=== PATIENT | female | born 1970 | race Caucasian/White ===

== ENCOUNTER → 2016-09-26 | Outpatient (REF) | payer BC ==
[~2016-09-26] MED LIST: ACETAM OR; CYTO25TA PO; KEFL500C7 PO; ROCA0.5C PO; TIZA4CAP3 PO; TRAMADOL OR; TUMS500C PO; ZANA4CAP PO
[2016-09-26 12:49] LABS: FREE T4 1.34 NG/DL (0.76-1.46)
== END ==
LOC: M LABDRAW1 11:47
PROVIDERS: ATTEND Internal Medicine Endocrinology, Diabetes & Metabolism
DX: C73 Malignant neoplasm of thyroid gland (principal)

== ENCOUNTER → 2016-09-29 | Outpatient (CLI) | payer BC ==
--- NOTE | 2016-09-30 00:05 | ECWPNPC ---
PATIENT NAME: NATALIE QUINTERO : 1970 GENDER: FEMALE VISIT DATE: 09/29/2016 DISCHARGE DATE: 09/29/16937 VISIT LOCKED DATE TIME: PHYSICIAN: AMY WELLS RESOURCE: AMY WELLS REASON FOR APPOINTMENT 1. BACK, FIBR HISTORY OF PRESENT ILLNESS HISTORY OF PRESENT ILLNESS: PAIN THE PATIENT DESCRIBES THE PAIN... THE PATIENT DESCRIBES THE PAIN... HERE FOR F/U OF CHRONIC GENERALIZED PAIN AND LOW BACK PAIN.TRIALED ON GABAPENTIN RECENTLY BY PRIMARY CARE AND HAD SIDE EFFECT OF HEADACHE AND NO IMPROVEMENT IN PAIN.CURRENTLY USING IBUPROFEN 800MG AND TENS UNIT WHICH SHE FINDS HELPFUL.FEELS LOW BACK PAIN IS BETTER THAN AFTER INITIAL VISIT AT [facility] .DISCUSSED TREATMENT OPTIONS.DISCUSSED INTERVENTIONAL OPTIONS WE OFFER.SHE WOULD LIKE TO CONTINUE WITH CONSERVATIVE CARE.ASKING US TO PRESCRIBE LIDOCAINE PATCH THIS HAS BEEN HELPFUL.RATING PAIN VAS 4/10.CHIEF AREA OF PAIN IS LEFT LOW BACK AND LEFT NECK.WILL BE ATTENDING ACCUPUNCTURE WHICH SHE HAS BEEN ATTENDING FOR SEVERAL YEARS. FALL RISK SCREENING: SCREENING :NO FALLS IN THE PAST YEAR CURRENT MEDICATIONS TAKING SYNTHROID 112 MCG TABLET 2 TABLET ON AN EMPTY STOMACH IN THE MORNING ORALLY ONCE A DAY TAKING CALCIUM 600 MG TABLET 1 TABLET WITH MEALS ORALLY ONCE A DAY TAKING TIZANIDINE HCL 4 MG TABLET 1 TABLET NEEDED ORALLY AT BEDTIME NEEDED TAKING IBUPROFEN 800 MG TABLET 1 TABLET ORALLY THREE TIMES A DAY TAKING LIDOCAINE HCL 4 % CREAM 4GM EXTERNALLY Q8H PRN LOW BACK TAKING CYMBALTA 30 MG CAPSULE DELAYED RELEASE PARTICLES 1 CAPSULE ORALLY ONCE A DAY TAKING FLUTICASONE PROPIONATE 50 MCG/ACT SUSPENSION 1 SPRAY IN EACH NOSTRIL NASALLY ONCE A DAY TAKING BREO ELLIPTA 200-25 MCG/INH AEROSOL POWDER BREATH ACTIVATED 1 PUFF INHALATION ONCE A DAY TAKING TAMIFLU 75 MG CAPSULE 1 CAPSULE ORALLY DAILY TAKING PENICILLIN V POTASSIUM 250 MG TABLET 1 TABLET ORALLY FOUR TIMES DAILY TAKING DIFLUCAN 150 MG TABLET 1 TABLET ORALLY 1 TODAY AND REPEAT X 1 IN A MONTH NOT-TAKING VITAMIN D 2000 UNIT TABLET DIRECTED ORALLY MEDICATION LIST REVIEWED AND RECONCILED WITH THE PATIENT PAST MEDICAL HISTORY FIBROMYALGIA- DX RHEUM UTICA- 2003 GESTATIONAL DIABETES INSOMNIA 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 CITLALI NESBITT, DECEMBER 2013 ALLERGIES CODEINE PHOSPHATE (FOR ALLERGIES USE ONLY): HYPERACTIVITY: SIDE EFFECTS SOCIAL HISTORY GENERAL: TOBACCO USE ARE YOU A:NONSMOKER LEARNING BARRIERS / SPECIAL NEEDS ORIENTED TO PLAN OF CARE: PATIENT, PAIN MANAGEMENT PATIENT, ORIENTED TO PLAN OF CARE: PATIENT, PAIN MANAGEMENT PATIENT. NEW PATIENT PAIN DIARY TODAY'S VISITNOTES FROM 0-10, WHAT LEVEL IS YOUR PAIN TODAY?0 PAIN CLINIC PFS, CLERGY, PUBLIC HEALTH REFERRALS PFS REFERRAL NEEDED?NO CLERGY REFERRAL NEEDED?NO PUBLIC HEALTH REFERRAL NEEDED?NO WAS THE PROVIDER NOTIFIED OF ANY PERTINENT INFO?NO PFS REFERRAL NEEDED?NO CLERGY REFERRAL NEEDED?NO PUBLIC HEALTH REFERRAL NEEDED?NO WAS THE PROVIDER NOTIFIED OF ANY PERTINENT INFO?NO REVIEW OF SYSTEMS CONSTITUTIONAL: ANY CHANGE IN YOUR MEDICAL CONDITION? NO . CHILLS NO . FEVER NO . INFECTION: DO YOU HAVE NEW INFECTIONS? NO . DO YOU HAVE HISTORY OF MRSA? NO . MUSCULOSKELETAL: ANY NEW PATTERNS OF PAIN OR NUMBNESS? YES INCREASED PAIN LOWER BACK . GASTROENTEROLOGY: ANY NEW CHANGE IN BOWEL CONTROL? NO . GENITOURINARY: ANY NEW CHANGE IN BLADDER CONTROL? NO . IS THERE A CHANCE YOU COULD BE ? NO . HEMATOLOGY/LYMPH: DO YOU TAKE ANY BLOOD THINNERS? (FOR EXAMPLE- COUMADIN, PLAVIX, AGGRENOX, PLATEL, PRADAXA, OR XARELTO) NO . WHEN WAS YOUR LAST DOSE? DATE: TIME: . NEUROLOGY: HAVE YOU FALLEN IN THE PAST 6 MONTHS? YES . ANY NEW EXTREMITY NUMBNESS OR WEAKNESS? NO . CARDIOLOGY: DO YOU HAVE A PACEMAKER OR DEFIBRILLATOR? NO . RESPIRATORY: HAVE YOU BEEN SICK IN THE PAST WEEK? NO . FEVER NO . FLU LIKE SYMPTOMS? NO . COUGH NO . INTEGUMENTARY: DO YOU HAVE ANY RASHES OR OPEN SORES? NO . ALLERGIC/IMMUNO: ARE YOU ALLERGIC TO SHELLFISH OR IV DYE? NO . ANY NEW ALLERGIES? NO . PSYCHIATRIC: DO YOU HAVE THOUGHTS OF HURTING YOURSELF OR SOMEONE ELSE? NO . ARE YOU ABUSED, NEGLECTED, OR IN AN UNSAFE ENVIRONMENT? NO . ENDOCRINOLOGY: ARE YOU DIABETIC? NO . OTHER: DO YOU NEED ANY PRESCRIPTIONS? NO . IF YES, PLEASE LIST: ____ . ANY NEW PROBLEMS WITH YOUR MEDICATIONS? NO . WHEN DID YOU LAST EAT? ____ . WHEN DID YOU LAST DRINK? ____ . WHAT DID YOU LAST DRINK? ____ . NAME OF PERSON DRIVING YOU HOME? ____ . DO YOU HAVE ANY OTHER QUESTIONS OR CONCERNS NO . REVIEWED BY: PROVIDER: AMY SARABIA . VITAL SIGNS WT 288.6 LBS, HT 68 IN, BMI 43.88 INDEX, BP 131/87 MM HG, HR 73 /MIN, RR 18 /MIN, TEMP 96.9 F, OXYGEN SAT % 95%, NA INITIALS SC 09:07. EXAMINATION GENERAL EXAMINATION: LUNGS:LUNG SOUNDS ARE CLEAR. HEART:HEART RATE REGULAR. MUSCULOSKELETAL:*, MUSCLE STRENGTH TESTING 5/5 BILATERAL, PALPATION: POSITIVE FOR PAIN OVER L/S SPINE. POSITIVE FOR PAIN OVER L/S PARSPINALS.MULTIPLE AREAS OF TENDER SPOTS UPPER AND LOWER TORSO BILAT. INDICATIVEOF FIBROMYALGIA. ASSESSMENTS PROTRUDED LUMBAR DISC - M51.26 (PRIMARY) FIBROMYALGIA - M79.7 TREATMENT PROTRUDED LUMBAR DISC INCREASE CYMBALTA CAPSULE DELAYED RELEASE PARTICLES, 60 MG, 1 CAPSULE, ORALLY, ONCE A DAY, 30 DAY(S), 30 CAPSULE, REFILLS 2 PROCEDURE CODES FA211 ESTABILISHED PATIENT [facility] CHARGE DISPOSITION & COMMUNICATION FOLLOW UP 2 MONTHS ELECTRONICALLY SIGNED BY NO MESSER ON 09/29/2016 AT 10:06 AM EST DISCLAIMER : THIS IS A VISIT SUMMARY EXTRACTED FROM THE [email or web address] CHART. IT IS NOT A COPY OF THE [email or web address] PROGRESS NOTE. MTDD
== END | disposition home or self-care (01) ==
LOC: M PAIN 09:00
PROVIDERS: ATTEND Nurse Practitioner Family
DX: Z09 Encounter for follow-up examination after completed treatment for conditions other than malignant neoplasm (principal); G89.29 Other chronic pain; M51.26 Other intervertebral disc displacement, lumbar region; M79.7 Fibromyalgia; G47.00 Insomnia, unspecified; E89.0 Postprocedural hypothyroidism; Z79.899 Other long term (current) drug therapy; Z79.51 Long term (current) use of inhaled steroids; Z79.2 Long term (current) use of antibiotics; Z79.1 Long term (current) use of non-steroidal anti-inflammatories (NSAID); Z88.5 Allergy status to narcotic agent

== ENCOUNTER → 2016-10-09 | Outpatient (CLI) | payer BC ==
--- NOTE | 2016-10-09 13:34 | REP ---
LEFT AXILLARY ULTRASOUND: Left axillary ultrasound performed in this patient with a palpable abnormality in the left axillary region, with pain. Two somewhat hyperechoic nodular structures are seen in the left axillary region. They measure 1.1 x 0.9 x 1.6 cm and 1.4 x 1.0 x 1.0 cm. These could represent lymph nodes or lipomas. Further evaluation may be made with CT scan. Signed by Bobby Hopkins MD 10/09/2016 04:14 P
== END ==
LOC: M RAD 12:39
PROVIDERS: ATTEND Nurse Practitioner Adult Health
DX: R59.9 Enlarged lymph nodes, unspecified (principal)

== ENCOUNTER → 2016-12-14 | Outpatient (CLI) | payer BC ==
--- NOTE | 2017-01-06 00:40 | ECWPNPC ---
PATIENT NAME: NATALIE QUINTERO : 1970 GENDER: FEMALE VISIT DATE: 12/14/2016 DISCHARGE DATE: 12/14/16 1433 VISIT LOCKED DATE TIME: PHYSICIAN: AMY WELLS RESOURCE: AMY WELLS REASON FOR APPOINTMENT 1. BACK HISTORY OF PRESENT ILLNESS HISTORY OF PRESENT ILLNESS: HERE FOR F/U AND MANAGEMENT OF CHRONIC LOW BACK PAIN AND PERSISTENT LEFT NECK PAIN.THIS BEGAN AFTER FALL INJURY ONE YEAR AGO.TRIALED MULTIPLE DIFFERENT MEDICATIONS BUT HAS SIDE EFFFECTS.RECENT DOSE INCREASE IN CYMBALTA WITH SIDE EFFECTS.RATING PAIN VAS 6/10.DISCUSSED TRETMENT OPTIONS.PATIENT IS RELUCTANT TO TRY INJECTION THERAPY.INTERESTED IN MEDICAL MARIJUANA AND SHE WAS GIVEN INFORMATION ON THIS TODAY. PAIN THE PATIENT DESCRIBES THE PAIN... FALL RISK SCREENING: SCREENING :NO FALLS IN THE PAST YEAR CURRENT MEDICATIONS TAKING SYNTHROID 112 MCG TABLET 2 TABLET ON AN EMPTY STOMACH IN THE MORNING ORALLY ONCE A DAY TAKING CALCIUM 600 MG TABLET 1 TABLET WITH MEALS ORALLY ONCE A DAY TAKING IBUPROFEN 800 MG TABLET 1 TABLET ORALLY THREE TIMES A DAY TAKING LIDOCAINE HCL 4 % CREAM 4GM EXTERNALLY Q8H PRN LOW BACK TAKING CYMBALTA 30 MG CAPSULE DELAYED RELEASE PARTICLES 1 CAPSULE ORALLY ONCE A DAY TAKING TIZANIDINE HCL 4 MG TABLET 1 TABLET NEEDED ORALLY AT BEDTIME NEEDED NOT-TAKING FLUTICASONE PROPIONATE 50 MCG/ACT SUSPENSION 1 SPRAY IN EACH NOSTRIL NASALLY ONCE A DAY NOT-TAKING BREO ELLIPTA 200-25 MCG/INH AEROSOL POWDER BREATH ACTIVATED 1 PUFF INHALATION ONCE A DAY NOT-TAKING TAMIFLU 75 MG CAPSULE 1 CAPSULE ORALLY DAILY NOT-TAKING PENICILLIN V POTASSIUM 250 MG TABLET 1 TABLET ORALLY FOUR TIMES DAILY NOT-TAKING DIFLUCAN 150 MG TABLET 1 TABLET ORALLY 1 TODAY AND REPEAT X 1 IN A MONTH NOT-TAKING VITAMIN D 2000 UNIT TABLET DIRECTED ORALLY MEDICATION LIST REVIEWED AND RECONCILED WITH THE PATIENT PAST MEDICAL HISTORY FIBROMYALGIA- DX RHEUM UTICA- 2003 GESTATIONAL DIABETES INSOMNIA VIT D DEF- 33.1 12/03 THYROID NODULE S/P FNA 11/03 13, DR. 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 CITLALI NESBITT, DECEMBER 2013 ALLERGIES CODEINE PHOSPHATE (FOR ALLERGIES USE ONLY): HYPERACTIVITY: SIDE EFFECTS SURGICAL HISTORY TUBAL LIGATION 2009 TOTAL THYROIDECTOMY-TOTAL THYROIDECTOMY WITH 15 NOSE REMOVED,DR. ENG, DR. LIZARRAGA 12/18/13 TONSILECTOMY 2009 GALL BLADDER 2009 UMBILICAL HERNIA REPAIR 2009 HOSPITALIZATION/MAJOR DIAGNOSTIC PROCEDURE FOR ABOVE REASONS REVIEW OF SYSTEMS CONSTITUTIONAL: ANY CHANGE IN YOUR MEDICAL CONDITION? YES. PT STATES SHE HAD SINUSITIS FOR 6 MONTHS OVER WINTER, PT STATES SHE WAS ON SEVERAL ABX TX. PT REPORTS L SUBAXILLARY LYMPHADENOPATHY, PCP Miguel SYLVESTER AWARE. PT STATES IT IS GETTING BETTER. . CHILLS NO . FEVER NO . INFECTION: DO YOU HAVE NEW INFECTIONS? YES, SINUSITIS RESOLVED . DO YOU HAVE HISTORY OF MRSA? NO . MUSCULOSKELETAL: ANY NEW PATTERNS OF PAIN OR NUMBNESS? NO . GASTROENTEROLOGY: ANY NEW CHANGE IN BOWEL CONTROL? NO . GENITOURINARY: ANY NEW CHANGE IN BLADDER CONTROL? NO . IS THERE A CHANCE YOU COULD BE ? NO . HEMATOLOGY/LYMPH: DO YOU TAKE ANY BLOOD THINNERS? (FOR EXAMPLE- COUMADIN, PLAVIX, AGGRENOX, PLATEL, PRADAXA, OR XARELTO) NO . WHEN WAS YOUR LAST DOSE? DATE: TIME: . NEUROLOGY: HAVE YOU FALLEN IN THE PAST 6 MONTHS? NO . ANY NEW EXTREMITY NUMBNESS OR WEAKNESS? NO . CARDIOLOGY: DO YOU HAVE A PACEMAKER OR DEFIBRILLATOR? NO . RESPIRATORY: HAVE YOU BEEN SICK IN THE PAST WEEK? NO . FEVER NO . FLU LIKE SYMPTOMS? NO . COUGH NO . INTEGUMENTARY: DO YOU HAVE ANY RASHES OR OPEN SORES? NO . ALLERGIC/IMMUNO: ARE YOU ALLERGIC TO SHELLFISH OR IV DYE? NO . ANY NEW ALLERGIES? NO . PSYCHIATRIC: DO YOU HAVE THOUGHTS OF HURTING YOURSELF OR SOMEONE ELSE? NO . ARE YOU ABUSED, NEGLECTED, OR IN AN UNSAFE ENVIRONMENT? NO . ENDOCRINOLOGY: ARE YOU DIABETIC? NO . OTHER: DO YOU NEED ANY PRESCRIPTIONS? YES, IBUPROFEN . IF YES, PLEASE LIST: ____ . ANY NEW PROBLEMS WITH YOUR MEDICATIONS? NO . WHEN DID YOU LAST EAT? ____ . WHEN DID YOU LAST DRINK? ____ . WHAT DID YOU LAST DRINK? ____ . NAME OF PERSON DRIVING YOU HOME? ____ . DO YOU HAVE ANY OTHER QUESTIONS OR CONCERNS NO . REVIEWED BY: PROVIDER: AMY SARABIA . VITAL SIGNS WT 288 LBS, HT 68 IN, BMI 43.79 INDEX, BP 130/87 MM HG, HR 90 /MIN, RR 18 /MIN, TEMP 96.9 F, OXYGEN SAT % 98, SAFE IN ENV? (Y/N) Y, REVIEWED BY: EM. EXAMINATION GENERAL EXAMINATION: LUNGS:LUNG SOUNDS ARE CLEAR. HEART:HEART RATE REGULAR. MUSCULOSKELETAL:*, MUSCLE STRENGTH TESTING 5/5 BILATERAL, PALPATION: POSITIVE FOR PAIN OVER L/S SPINE. POSITIVE FOR PAIN OVER L/S PARSPINALS.MULTIPLE AREAS OF TENDER SPOTS UPPER AND LOWER TORSO BILAT. INDICATIVEOF FIBROMYALGIA. ASSESSMENTS PROTRUDED LUMBAR DISC - M51.26 (PRIMARY) MYALGIA - M79.1 TREATMENT PROTRUDED LUMBAR DISC REFILL IBUPROFEN TABLET, 800 MG, 1 TABLET, ORALLY, THREE TIMES A DAY, 30 DAY(S), 90 TABLET, REFILLS 2 CONTINUE CYMBALTA CAPSULE DELAYED RELEASE PARTICLES, 30 MG, 1 CAPSULE, ORALLY, ONCE A DAY CONTINUE TIZANIDINE HCL TABLET, 4 MG, 1 TABLET NEEDED, ORALLY, AT BEDTIME NEEDED PROCEDURE CODES FA211 ESTABILISHED PATIENT [facility] CHARGE DISPOSITION & COMMUNICATION FOLLOW UP PT WILL CALL ELECTRONICALLY SIGNED BY NO MESSER ON 01/05/2017 AT 08:27 PM EDT DISCLAIMER : THIS IS A VISIT SUMMARY EXTRACTED FROM THE [employer] CHART. IT IS NOT A COPY OF THE [employer] PROGRESS NOTE. WENDIE
== END ==
LOC: M PAIN 13:40
PROVIDERS: ATTEND Nurse Practitioner Family
DX: M51.26 Other intervertebral disc displacement, lumbar region (principal); M79.1 Myalgia; Z79.899 Other long term (current) drug therapy; Z88.5 Allergy status to narcotic agent

== ENCOUNTER → 2017-05-03 | Outpatient (REF) | payer BC ==
[~2017-05-03] MED LIST changes: +CBD PO; -CYTO25TA PO; +CYTO25TA6 PO; +KEFL500C17 PO; -KEFL500C7 PO; +SYNT100T PO; +SYNT112T2 PO; +VITA100067 PO; +[UNRECOGNIZED DRUG - OTHER] PO
[2017-05-03 18:15] LABS: FREE T4 1.2 NG/DL (0.76-1.46)
== END ==
LOC: M LABDRAWP 17:08
PROVIDERS: ATTEND Internal Medicine
DX: C73 Malignant neoplasm of thyroid gland (principal)

== ENCOUNTER → 2017-05-03 | Outpatient (REF) | payer BC ==
[2017-05-03 18:07] LABS: BASO # 0.1 10^3/uL (0.0-0.2); BASO % 0.5 % (0.0-1.0); EOS # 0.2 10^3/uL (0.0-0.50); EOS % 1.5 % (0.0-3.0); IMMATURE GRANULOCYTE % 0.7 % (0-0); LYMPH # 1.9 10^3/uL (1.5-4.5); LYMPH % 17.3 % (24.0-44.0); MEAN CORPUSCULAR HEMOGLOBIN 28.9 pg (27.0-33.0); MEAN CORPUSCULAR HGB CONC 33.6 g/dl (32.0-36.5); MEAN CORPUSCULAR VOLUME 86.2 fl (80.0-96.0); MONO # 0.9 10^3/uL (0.0-0.8); MONO % 7.7 % (0.0-5.0); NEUTROPHILS % 72.3 % (36.0-66.0); PLATELET COUNT, AUTOMATED 287 10^3/uL (150-450); RED CELL DISTRIBUTION WIDTH 13.2 % (11.5-14.5)
[2017-05-03 18:14] LABS: ANION GAP 9 MEQ/L (8-16); BLOOD UREA NITROGEN 17 MG/DL (7-18); CALCIUM LEVEL 8.7 MG/DL (8.5-10.1); CARBON DIOXIDE LEVEL 25 MEQ/L (21-32); CHLORIDE LEVEL 105 MEQ/L (98-107); CREATININE FOR GFR 1.01 MG/DL (0.55-1.02); GLOMERULAR FILTRATION RATE > 60.0 (>58); GLUCOSE, FASTING 111 MG/DL (70-105); SODIUM LEVEL 139 MEQ/L (136-145)
== END ==
LOC: M LAB REF 17:06 → M LABDRAWP 17:06
PROVIDERS: ATTEND Podiatrist
DX: M77.32 Calcaneal spur, left foot (principal); Z01.818 Encounter for other preprocedural examination

== ENCOUNTER 2017-05-10 07:23 | Day surgery (SDC) | payer BC ==
[~2017-05-10] VITALS: Ht 175.3 cm; Wt 134.6 kg
[2017-05-10] MEDS ORDERED: LR 1,000 ML IV SCH ×3 (07:30→12:15)
[2017-05-10] MEDS ORDERED: ONDANSETRON 4MG/2ML VIAL (J2405) As Ordered ONE (08:01)
[2017-05-10] MEDS ORDERED: fentaNYL 100 MCG/2 ML INJECTION (J3010) As Ordered ONE (08:01)
[2017-05-10] MEDS ORDERED: MIDAZOLAM INJ 2 MG/2 ML VIAL (J2250) As Ordered ONE (08:01)
[2017-05-10] MEDS ORDERED: PROPOFOL 200 MG/20 ML VIAL As Ordered ONE ×2 (08:01→09:43)
[2017-05-10] MEDS ORDERED: KETOROLAC 60 MG/2 ML VIAL (J1885) As Ordered ONE (08:01)
[2017-05-10] MEDS ORDERED: LIDOCAINE 2% INJ 100 MG/5 ML SDV (FOR ANES.) As Ordered ONE (08:01)
[2017-05-10] MEDS ORDERED: LIDOCAINE 2% MDV 20 ML VIAL As Ordered ONE (08:29)
[2017-05-10] MEDS ORDERED: BACITRACIN PWD 50,000 UNITS VIAL As Ordered ONE (08:29)
[2017-05-10] MEDS ORDERED: BUPIVACAINE HCL 0.5% 30 ML VIAL As Ordered ONE (08:29)
[2017-05-10] MEDS ORDERED: NEOSPORIN GU IRRIG 20 ML VIAL As Ordered ONE (08:29)
[2017-05-10] MEDS ORDERED: dexameTHASONE 4 MG/ML 1ML VIAL (J1100) As Ordered ONE (08:29)
[2017-05-10] MEDS ORDERED: ONDANSETRON 4MG/2ML VIAL (J2405) IV PRN ×2 (10:00→12:15)
[2017-05-10] MEDS ORDERED: PERCOCET 5MG/325MG TAB PO PRN ×2 (10:00→12:15)
--- NOTE | 2017-05-10 10:40 | REP ---
LEFT FOOT, THREE VIEWS: HISTORY: Postoperative. There is no acute fracture or dislocation. The joint spaces are normal in appearance. There are no bone spurs. IMPRESSION: There is no acute fracture or dislocation. Signed by Francisco Colunga MD 05/10/2017 11:00 A
--- NOTE | 2017-05-10 10:48 | RO ---
DATE OF PROCEDURE: 05/10/2017 PREPROCEDURE DIAGNOSIS: Navicular spur dorsal aspect left foot. POSTPROCEDURE DIAGNOSIS: Navicular spur dorsal aspect left foot. PROCEDURE: Excision of navicular spur of the left foot. SURGEON: Dr. Mateo Valverde DPM SOFTWARE SALES EXECUTIVE: None. ANESTHESIA: General. IRRIGATION: Dilute bacitracin, neomycin and polymyxin B solution. HEMOSTASIS: Thigh pneumatic tourniquet at 250 mmHg left thigh on the left thigh for 25 minutes. HARDWARE USED: Bone wax. DRAINS UTILIZED: None. DESCRIPTION OF OPERATION: On 05/10/2017, this 46-year-old white female was taken from her hospital room to the operating room and placed on the operating room table in the supine position. Following the induction of IV sedation and local and regional anesthesia, the left lower extremity was prepped and draped in the usual aseptic manner. Thigh pneumatic tourniquet was rapidly inflated. Sterile draping was completed and the following procedure was performed: EXCISION OF NAVICULAR SPUR LEFT FOOT: Attention was directed to the patient's dorsal surface of the left foot where a 3 cm incision was placed over the spur along the medial border of the extensor hallicus longus tendon just lateral to the neurovascular bundle. The incision was then deepened through the subcutaneous tissues and the inferior extensor retinaculum was incised. The extensor tendons were retracted in a lateral direction. Dissection was carried down to the level of the extensor digitorum muscle belly which was also reflected in a lateral direction. Periosteal incision was made directly over the spur and utilizing a subperiosteal dissection to protect the neurovascular bundle, the exposure was obtained revealing the spur off the navicula. Utilizing a rongeur, the spur was removed. Intraoperative C-arm imagery revealed resection of the spur. The wound was flushed with copious amounts of dilute bacitracin, neomycin and polymyxin B solution. Bone wax was then placed overlying the cancellous bone. Wound was then irrigated with dilute bacitracin, neomycin and polymyxin B solution. Inferior extensor retinaculum was then repaired with #4-0 Monocryl in a simple interrupted type fashion. Subcutaneous tissues were coapted and maintained utilizing #4-0 Monocryl in a simple interrupted type fashion. Skin incision coapted and maintained using #5-0 Monocryl in a continuous subcuticular type fashion. This was additionally reinforced with Steri-Strips. Following the completion of the surgical procedure, 1 mL of Dexamethasone sodium phosphate was instilled along the surgical site. Attention was directed toward bandaging where a sterile compression bandage was applied consisting of Adaptic, 4x4, 4x4 splint, Vaughn, and Coban. The thigh pneumatic tourniquet was then rapidly deflated and instantaneous capillary filling time was noted to digits of one through five of the patient's left foot. The patient having apparently tolerated the surgical procedure well was taken from the operating room (OR) to the recovery room with vital signs stable and the patient afebrile for further monitoring by the anesthesia department. All surgical specimens removed during the operative procedure were sent for pathology for gross and microscopic examination. Postoperative instructions will be given upon discharge.
[2017-05-10 11:30] VITALS: BP 126/65
[2017-05-10] MEDS ORDERED: PERCOCET 5MG/325MG TAB As Ordered ONE (11:33)
== END 2017-05-10 12:05 | disposition home or self-care (01) ==
LOC: M SDC 07:23
PROVIDERS: ATTEND Podiatrist
DX: M25.775 Osteophyte, left foot (principal); M79.7 Fibromyalgia; E55.9 Vitamin D deficiency, unspecified; C73 Malignant neoplasm of thyroid gland; M51.9 Unspecified thoracic, thoracolumbar and lumbosacral intervertebral disc disorder; R51 Headache; Z79.899 Other long term (current) drug therapy; Z88.5 Allergy status to narcotic agent; Z98.51 Tubal ligation status; Z92.3 Personal history of irradiation; Z87.891 Personal history of nicotine dependence
CPT/HCPCS: 28119; 73630; 88300; 97116; J0690; J1100; J1885; J2250; J2405; J3010

== ENCOUNTER → 2017-07-18 | Outpatient (REF) | payer BC | LOC: M LAB REF 19:23 | DX: N39.0 Urinary tract infection, site not specified (principal) | CPT/HCPCS: 87186 ==

== ENCOUNTER → 2018-02-04 | Outpatient (REF) | payer BC ==
[2018-02-04 13:06] LABS: FREE T4 1.56 NG/DL (0.76-1.46); THYROID STIMULATING HORMONE 0.052 uIU/ML (0.358-3.740)
== END ==
LOC: M LABDRWAD 12:08
DX: E03.9 Hypothyroidism, unspecified (principal)
CPT/HCPCS: 84443

== ENCOUNTER → 2018-06-10 | Outpatient (REF) | payer BC ==
[2018-06-10 20:12] LABS: CREATININE FOR GFR 1.02 MG/DL (0.55-1.30); ESTIMATED AVERAGE GLUCOSE 114 MG/DL (60-110); FREE T4 1.46 NG/DL (0.76-1.46); GLOMERULAR FILTRATION RATE > 60.0 (>58); HEMOGLOBIN A1c 5.6 %; THYROID STIMULATING HORMONE 0.058 uIU/ML (0.358-3.740)
== END ==
LOC: M LABDRWAD 19:31
DX: R73.03 Prediabetes (principal)

== ENCOUNTER → 2018-08-08 | Outpatient (CLI) | payer BC ==
[~2018-08-08] MED LIST changes: +TIZA4CAP PO; -TIZA4CAP3 PO
--- NOTE | 2018-08-09 05:41 | REP ---
Clinical: Abdominal hernia. Technique: Real time tovar scale and color evaluation using curved array transducer. Findings: Directed ultrasound examination at the site of maximal tenderness just to the right of midline demonstrates an ovoid echogenic well-circumscribed area measuring approximately 2.5 x 1.3 x 2.3 cm suggesting lipoma. No hernia or fluid collection identified. Impression: Suspected lipoma in the subcutaneous tissues underlying the area of maximal tenderness. Electronically Signed by Yogi Witt MD 08/09/2018 05:32 A
== END ==
LOC: M RAD 09:39
PROVIDERS: ATTEND Nurse Practitioner Adult Health
DX: K45.8 Other specified abdominal hernia without obstruction or gangrene (principal)

== ENCOUNTER → 2018-08-08 | Outpatient (REF) | payer BC ==
[2018-08-08 13:56] LABS: FREE T4 1.47 NG/DL (0.76-1.46); THYROID STIMULATING HORMONE 0.028 uIU/ML (0.358-3.740)
[2018-08-09 09:58] LABS: THYROGLOBULIN ANTIBODY 30.5 U/ML (<60.0)
== END ==
LOC: M LABDRAW1 13:28
PROVIDERS: ATTEND Internal Medicine Endocrinology, Diabetes & Metabolism
DX: C73 Malignant neoplasm of thyroid gland (principal)

== ENCOUNTER → 2018-08-29 | Outpatient (REF) | payer BC | LOC: M LAB REF 17:23 | PROVIDERS: ATTEND Surgery | DX: D17.1 Benign lipomatous neoplasm of skin and subcutaneous tissue of trunk (principal) ==

== ENCOUNTER → 2018-10-04 | Outpatient (REF) | payer BC ==
[2018-10-04 20:16] LABS: FREE T4 1.31 NG/DL (0.76-1.46); THYROID STIMULATING HORMONE 0.066 uIU/ML (0.358-3.740)
== END ==
LOC: M LABDRWAD 19:00 → M LAB REF 19:00
PROVIDERS: ATTEND Internal Medicine Endocrinology, Diabetes & Metabolism
DX: C73 Malignant neoplasm of thyroid gland (principal)

== ENCOUNTER → 2018-12-17 | Outpatient (REF) | payer BC ==
[2018-12-17 20:14] LABS: BASO # 0.1 10^3/uL (0.0-0.2); BASO % 0.5 % (0.0-1.0); EOS # 0.1 10^3/uL (0.0-0.50); EOS % 0.6 % (0.0-3.0); HEMATOCRIT 44.2 % (36.0-47.0); HEMOGLOBIN 14.4 g/dl (12.0-15.5); LYMPH % 20.3 % (24.0-44.0); MEAN CORPUSCULAR HEMOGLOBIN 29.3 pg (27.0-33.0); MEAN CORPUSCULAR HGB CONC 32.6 g/dl (32.0-36.5); MONO # 0.6 10^3/uL (0.0-0.8); MONO % 5.8 % (0.0-5.0); NEUTROPHILS # 7.3 10^3/uL (1.8-7.7); NEUTROPHILS % 72.1 % (36.0-66.0); PLATELET COUNT, AUTOMATED 296 10^3/uL (150-450); RED BLOOD COUNT 4.91 10^6/uL (4.00-5.40); WHITE BLOOD COUNT 10.1 10^3/uL (4.0-10.0)
[2018-12-17 20:23] LABS: ALBUMIN 3.9 GM/DL (3.2-5.2); ALT/SGPT 18 U/L (12-78); BILIRUBIN,TOTAL 0.4 MG/DL (0.2-1.0); BLOOD UREA NITROGEN 14 MG/DL (7-18); CALCIUM LEVEL 8.8 MG/DL (8.5-10.1); CARBON DIOXIDE LEVEL 27 MEQ/L (21-32); CHLORIDE LEVEL 106 MEQ/L (98-107); CHOLESTEROL LEVEL 137 MG/DL (<200); CHOLESTEROL RISK RATIO 3.044 (<5); CREATININE FOR GFR 0.89 MG/DL (0.55-1.30); GLOMERULAR FILTRATION RATE > 60.0 (>58); GLUCOSE, FASTING 93 MG/DL (70-100); HDL CHOLESTEROL 45 MG/DL (>40); LDL CHOLESTEROL 50 MG/DL (<100); NON-HDL-C 92 MG/DL; SODIUM LEVEL 139 MEQ/L (136-145); TOTAL PROTEIN 6.9 GM/DL (6.4-8.2); TRIGLYCERIDES LEVEL 211 MG/DL (<150)
[2018-12-17 20:59] LABS: HEMOGLOBIN A1c 5.5 %
[2018-12-24 14:11] LABS: STREP PNEUMO TYPE 1 <0.1 ug/mL (>1.3); STREP PNEUMO TYPE 12F 0.6 ug/mL (>1.3); STREP PNEUMO TYPE 14 <0.1 ug/mL (>1.3); STREP PNEUMO TYPE 18C >14.7 ug/mL (>1.3); STREP PNEUMO TYPE 19A 1.4 ug/mL (>1.3); STREP PNEUMO TYPE 19F 1.4 ug/mL (>1.3); STREP PNEUMO TYPE 23F 0.5 ug/mL (>1.3); STREP PNEUMO TYPE 3 0.7 ug/mL (>1.3); STREP PNEUMO TYPE 4 0.4 ug/mL (>1.3); STREP PNEUMO TYPE 6B 0.3 ug/mL (>1.3); STREP PNEUMO TYPE 7F 0.6 ug/mL (>1.3); STREP PNEUMO TYPE 8 1.1 ug/mL (>1.3); STREP PNEUMO TYPE 9N 0.3 ug/mL (>1.3); STREP PNEUMO TYPE 9V 1.7 ug/mL (>1.3)
== END ==
LOC: M LABDRWAD 19:11
PROVIDERS: ATTEND Physician Assistant
DX: J32.8 Other chronic sinusitis (principal)

== ENCOUNTER 2019-02-26 07:05 | Day surgery (SDC) | payer BC ==
[~2019-02-26] VITALS: Ht 172.7 cm; Wt 117.4 kg
[~2019-02-26 07:05] MED LIST changes: +LEVO2TA PO; +LIDOCAINE 1% MDV 20ML VIAL SQ PRN; +LR 1,000 ML IV ONE; +VITAD1000T PO; +dexameTHASONE 4 MG/ML 1ML VIAL (J1100) IV ONE
[2019-02-26] MEDS ORDERED: PROPOFOL 200 MG/20 ML VIAL As Ordered ONE ×2 (07:09→09:37)
[2019-02-26] MEDS ORDERED: ONDANSETRON 4MG/2ML VIAL (J2405) As Ordered ONE (07:10)
[2019-02-26] MEDS ORDERED: dexameTHASONE 4 MG/ML 1ML VIAL (J1100) As Ordered ONE (07:10)
[2019-02-26] MEDS ORDERED: LIDOCAINE 2% INJ 100 MG/5 ML SDV (FOR ANES.) As Ordered ONE (07:11)
[2019-02-26] MEDS ORDERED: ROCURONIUM BROMIDE 50 MG/5 ML VIAL As Ordered ONE ×2 (07:11→09:38)
[2019-02-26] MEDS ORDERED: fentaNYL 250 MCG/5 ML INJECTION (J3010) As Ordered ONE (07:12)
[2019-02-26] MEDS ORDERED: MIDAZOLAM INJ 2 MG/2 ML VIAL (J2250) As Ordered ONE (07:13)
[2019-02-26] MEDS ORDERED: LIDOCAINE W/EPINEPHRINE 1% 20ML VIAL As Ordered ONE (08:28)
[2019-02-26] MEDS ORDERED: SODIUM CHLORIDE 0.9% NASAL GEL 15GM (AYR) As Ordered ONE (08:30)
[2019-02-26] MEDS ORDERED: METHYLENE BLUE 0.5% (5MG/ML) 10 ML AMP (PROVAYBLUE)(Q9968 PER 1MG) As Ordered ONE (08:31)
[2019-02-26] MEDS ORDERED: EPINEPHrine 1MG/ML INJ 30ML MD-VIAL As Ordered ONE (08:31)
[2019-02-26] MEDS ORDERED: GLYCOPYRROLATE INJ 0.2 MG/ML 2 ML VIAL As Ordered ONE (09:17)
[2019-02-26] MEDS ORDERED: NEOSTIGMINE 10 MG/10 ML VIAL (J2710) As Ordered ONE (09:17)
[2019-02-26] MEDS ORDERED: ACETAMINOPHEN 1000MG 100ML IV BTL (OFIRMEV) (J0131 PER 10MG) As Ordered ONE (09:57)
[2019-02-26] MEDS: LR 1,000 ML IV SCH ×2 (10:52→11:06)
[2019-02-26] MEDS: fentaNYL 100 MCG/2 ML INJECTION (J3010) IV PRN ×4 (11:10→11:25)
[2019-02-26] MEDS ORDERED: ONDANSETRON 4MG/2ML VIAL (J2405) IV PRN (11:15)
[2019-02-26] MEDS ORDERED: PERCOCET 5MG/325MG TAB PO PRN (11:15)
[2019-02-26] MEDS ORDERED: oxyCODONE 5MG TAB As Ordered ONE (11:37)
[2019-02-26] MEDS ORDERED: oxyCODONE 5MG TAB PO ONE (11:45)
[2019-02-26] MEDS ORDERED: LR 1,000 ML IV SCH (12:16)
[2019-02-26] MEDS ORDERED: METOCLOPRAMIDE INJ 10MG/2ML VIAL (J2765) As Ordered ONE (12:34)
[2019-02-26] MEDS ORDERED: METOCLOPRAMIDE INJ 10MG/2ML VIAL (J2765) IV ONE (13:00)
[2019-02-26 13:55] VITALS: BP 101/59
--- NOTE | 2019-03-26 10:44 | RO ---
DATE OF PROCEDURE: 02/26/2019 PREPROCEDURE DIAGNOSES: Deviated nasal septum. Right chronic maxillary sinusitis. Right chronic ethmoid sinusitis. POSTPROCEDURE DIAGNOSES: Deviated nasal septum. Right chronic maxillary sinusitis. Right chronic ethmoid sinusitis. PROCEDURE: 1. Septoplasty. 2. Right maxillary balloon Sinuplasty. 3. Right anterior endoscopic ethmoidectomy. 4. Implantation of the right Propel stent. SURGEON: Dr. Gene Gutierrez. BUYER BROKER: None. ANESTHESIA: General. CLINICAL PREAMBLE: This is a 48-year-old woman who presented to the office with a history of chronic rhinosinusitis affecting mostly the right side. CT of the sinuses confirmed the presence of diseases in the right maxillary sinus and the right ethmoid sinus. Deviated nasal septum is also noted. Management options including surgery listed above have been discussed. The patient understood and consented to the procedure. DESCRIPTION OF PROCEDURE: The patient was identified in pre-holding and brought to the operating room in stable condition. In the supine position on the operating table, patient received general anesthesia followed by orotracheal intubation without incident. Patient was prepped and draped in the usual fashion for the procedure. Both eyes were protected by using the eye lubricant followed by application of the Tegaderm. Both eyes remained visible throughout the entire case. Pledgets soaked in 1:100,000 epinephrine was placed into the right nasal cavity. After a waiting period, the pledgets were removed. Using 0 degree rigid nasal endoscope, the deviated nasal septum was noted. Under endoscopic evaluation, a vertical incision was made inferior to the right nasal septal spur. Mucoperichondrial and mucoperiosteal flaps were developed. The deviated portion of the nasal septum was then isolated and resected. This afforded a much improved surgical access to the right ostiomeatal complex area. The uncinate process was identified and probed for the right maxillary antrum. Using the alternate balloon system, a transient illuminated guidewire was successfully introduced into the right maxillary sinus. Upon positive illumination of the maxillary sinus, the balloon was advanced into the right maxillary antrum. The balloon was inflated to 2.0 atmospheric pressure for 5 seconds. The right maxillary sinus was then irrigated with warm saline solution. At this time, the right ethmoidalis bulla was identified and resected using Blakesley forceps. Disease in the anterior ethmoidalis was identified and resected as well. Hemostasis was achieved by placing cottonoid pledgets soaked in 1:100,000 epinephrine. At the end of the procedure, complete hemostasis was observed. The Propel stent was successfully implanted in the right ostiomeatal complex to insure medialization of the right middle nasal turbinate. Estimated blood loss of approximately 50 mL. No complications during the procedure. General anesthesia was reversed and patient was extubated, brought to the recovery room in stable condition. In the recovery area, patient exhibits full and symmetrical ocular motion with no evidence of periorbital ecchymosis.
== END 2019-02-26 14:06 | disposition home or self-care (01) ==
LOC: M SDC 07:05
PROVIDERS: ATTEND Otolaryngology
DX: J34.2 Deviated nasal septum (principal); J32.0 Chronic maxillary sinusitis; J32.2 Chronic ethmoidal sinusitis; E06.3 Autoimmune thyroiditis; M79.7 Fibromyalgia; G43.909 Migraine, unspecified, not intractable, without status migrainosus; Z88.5 Allergy status to narcotic agent; Z79.899 Other long term (current) drug therapy; Z98.51 Tubal ligation status; Z92.3 Personal history of irradiation; Z87.891 Personal history of nicotine dependence
CPT/HCPCS: 30520; 31254; 31295; 88305; C2625; J0131; J1100; J2250; J2405; J2710; J2765; J3010; Q9968

== ENCOUNTER → 2019-04-22 | Outpatient (CLI) | payer BC ==
[~2019-04-22] MED LIST changes: +CHOL100029 PO; -LIDOCAINE 1% MDV 20ML VIAL SQ PRN; -LR 1,000 ML IV ONE; -VITAD1000T PO; -dexameTHASONE 4 MG/ML 1ML VIAL (J1100) IV ONE
--- NOTE | 2019-04-22 19:16 | REP ---
Thyroid ultrasound: Comparison is 08/24/2015. The patient has a clinical history of thyroid carcinoma and thyroidectomy greater than 10 years ago. On the current study there are multiple lymph nodes in the thyroid bed bilaterally. No thyroid tissue is identified. The largest node in the right thyroid bed is 0.7 x 0.4 x 0.7 cm and the left thyroid bed is 1.2 x 0.3 x 0.7 cm. These lymph nodes are normal size. Impression: Status post thyroidectomy. No thyroid tissue is identified. There are normal size lymph nodes in the thyroid bed bilaterally. Electronically Signed by Bobby Brunson MD 04/22/2019 07:08 P
== END ==
LOC: M RAD 17:08
PROVIDERS: ATTEND Otolaryngology
DX: C73 Malignant neoplasm of thyroid gland (principal); E89.0 Postprocedural hypothyroidism

== ENCOUNTER → 2019-05-28 | Outpatient (CLI) | payer BC ==
[2019-05-28 19:52] LABS: FREE T4 1.41 NG/DL (0.76-1.46); THYROID STIMULATING HORMONE 0.165 uIU/ML (0.358-3.740)
== END ==
LOC: M LABDRWAD 17:04
PROVIDERS: ATTEND Internal Medicine Endocrinology, Diabetes & Metabolism
DX: Z85.850 Personal history of malignant neoplasm of thyroid (principal)

== ENCOUNTER → 2019-10-07 | Outpatient (CLI) | payer BC ==
--- NOTE | 2019-10-07 17:56 | REP ---
HISTORY: Cough. COMPARISON: None. FINDINGS: The superior mediastinal structures are midline. The cardiac silhouette is unremarkable in size, shape and position. The diaphragmatic surfaces of the lungs are regular and the costophrenic angles are clear. The pulmonary [place] are clear. The imaged osseous structures are intact. IMPRESSION: There is no acute cardiopulmonary disease. Electronically Signed by Brian Godinez DO 10/07/2019 05:59 P
== END ==
LOC: M ADAMS 17:04
PROVIDERS: ATTEND Physician Assistant
DX: R05 Cough (principal)

== ENCOUNTER → 2019-12-01 | Outpatient (REF) | payer OTHER ==
[2019-12-01 12:47] LABS: BASO # 0.1 10^3/uL (0.0-0.2); EOS # 0.1 10^3/uL (0.0-0.5); EOS % 1.7 % (0.0-3.0); HEMATOCRIT 45.9 % (36.0-47.0); HEMOGLOBIN 15.3 g/dl (12.0-15.5); LYMPH # 1.9 10^3/uL (1.5-5.0); LYMPH % 26.2 % (24.0-44.0); MEAN CORPUSCULAR HEMOGLOBIN 29.6 pg (27.0-33.0); MEAN CORPUSCULAR HGB CONC 33.3 g/dl (32.0-36.5); MEAN CORPUSCULAR VOLUME 88.8 fl (80.0-96.0); MONO # 0.6 10^3/uL (0.0-0.8); MONO % 7.9 % (0.0-5.0); NEUTROPHILS # 4.6 10^3/uL (1.5-8.5); NEUTROPHILS % 62.6 % (36.0-66.0); PLATELET COUNT, AUTOMATED 278 10^3/uL (150-450); RED BLOOD COUNT 5.17 10^6/uL (4.00-5.40); WHITE BLOOD COUNT 7.3 10^3/uL (4.0-10.0)
[2019-12-01 13:02] LABS: ALBUMIN 3.9 GM/DL (3.2-5.2); ALT/SGPT 24 U/L (12-78); BILIRUBIN,TOTAL 0.4 MG/DL (0.2-1.0); BLOOD UREA NITROGEN 17 MG/DL (7-18); CALCIUM LEVEL 9.1 MG/DL (8.5-10.1); CARBON DIOXIDE LEVEL 28 MEQ/L (21-32); CHLORIDE LEVEL 105 MEQ/L (98-107); CREATININE FOR GFR 0.89 MG/DL (0.55-1.30); FREE T4 1.41 NG/DL (0.76-1.46); GLOMERULAR FILTRATION RATE > 60.0 (>51); GLUCOSE, FASTING 116 MG/DL (70-100); POTASSIUM SERUM 3.9 MEQ/L (3.5-5.1); SODIUM LEVEL 139 MEQ/L (136-145); THYROID STIMULATING HORMONE 0.076 uIU/ML (0.358-3.740); TOTAL PROTEIN 7.1 GM/DL (6.4-8.2)
[2019-12-01 13:03] LABS: THYROGLOBULIN ANTIBODY < 15.0 U/ML (<60.0); TOTAL 25(OH) VITAMIN D 35.5 NG/ML (30.0-100.0)
== END ==
LOC: M LABDRWAD 12:30
PROVIDERS: ATTEND Physician Assistant
DX: E03.9 Hypothyroidism, unspecified (principal)

== ENCOUNTER → 2020-04-21 | Outpatient (CLI) | payer OTHER ==
[2020-04-21 17:29] LABS: FREE T4 1.26 NG/DL (0.76-1.46); THYROID STIMULATING HORMONE 0.088 uIU/ML (0.358-3.740); TOTAL 25(OH) VITAMIN D 45.5 NG/ML (30.0-100.0)
[2020-05-02 21:07] LABS: THYROGLOBULIN RIA 7.2 ng/mL (.)
== END ==
LOC: M LABDRWAD 14:28
PROVIDERS: ATTEND Internal Medicine Endocrinology, Diabetes & Metabolism
DX: E89.0 Postprocedural hypothyroidism (principal)

== ENCOUNTER → 2020-07-06 | Outpatient (REF) | payer BC ==
[2020-07-06 16:48] LABS: FREE T4 1.34 NG/DL (0.76-1.46); THYROID STIMULATING HORMONE 0.119 uIU/ML (0.358-3.740)
== END ==
LOC: M LABDRWAD 16:09
PROVIDERS: ATTEND Internal Medicine Endocrinology, Diabetes & Metabolism
DX: E89.0 Postprocedural hypothyroidism (principal)

== ENCOUNTER → 2020-08-13 | Outpatient (REF) | payer BC ==
[2020-08-13 19:11] LABS: FREE T3 2.2 PG/ML (2.2-4.0); FREE T4 1.03 NG/DL (0.76-1.46); THYROID STIMULATING HORMONE 0.325 uIU/ML (0.358-3.740); TOTAL 25(OH) VITAMIN D 34.6 NG/ML (30.0-100.0)
[2020-08-22 06:39] LABS: THRYOGLOBULIN ANTIBODIES (ATA) 2.9 IU/mL (0.0-0.9); THYROGLOBULIN RIA 5.2 ng/mL (.)
== END ==
LOC: M LABDRWAD 17:17
PROVIDERS: ATTEND Internal Medicine
DX: E89.0 Postprocedural hypothyroidism (principal)

== ENCOUNTER → 2020-08-19 | Outpatient (CLI) | payer SELFPAY | LOC: M LABSMTC 12:10 | PROVIDERS: ATTEND Pediatrics | DX: Z20.822 Contact with and (suspected) exposure to COVID-19 (principal) ==

== ENCOUNTER → 2020-11-22 | Outpatient (REF) | payer OTHER ==
[2020-11-22 14:48] LABS: FREE T4 1.34 NG/DL (0.76-1.46); THYROID STIMULATING HORMONE 0.096 uIU/ML (0.358-3.740)
== END ==
LOC: M LABDRWAD 12:31
PROVIDERS: ATTEND Internal Medicine
DX: E89.0 Postprocedural hypothyroidism (principal)

== ENCOUNTER → 2020-11-22 | Outpatient (REF) | payer OTHER ==
[2020-11-22 13:27] LABS: BASO # 0.1 10^3/uL (0.0-0.2); BASO % 0.7 % (0.0-1.0); EOS # 0.2 10^3/uL (0.0-0.5); EOS % 1.8 % (0.0-3.0); HEMATOCRIT 43.2 % (36.0-47.0); HEMOGLOBIN 14.3 g/dl (12.0-15.5); MEAN CORPUSCULAR HEMOGLOBIN 28.7 pg (27.0-33.0); MEAN CORPUSCULAR HGB CONC 33.1 g/dl (32.0-36.5); MEAN CORPUSCULAR VOLUME 86.7 fl (80.0-96.0); MONO # 0.6 10^3/uL (0.0-0.8); MONO % 6.6 % (2.0-8.0); NEUTROPHILS % 68.2 % (36.0-66.0); PLATELET COUNT, AUTOMATED 300 10^3/uL (150-450); RED BLOOD COUNT 4.98 10^6/uL (4.00-5.40); WHITE BLOOD COUNT 8.9 10^3/uL (4.0-10.0)
[2020-11-22 14:02] LABS: ALBUMIN 3.7 GM/DL (3.2-5.2); ALT/SGPT 19 U/L (12-78); BILIRUBIN,DIRECT 0.1 MG/DL (0.0-0.2); BILIRUBIN,TOTAL 0.6 MG/DL (0.2-1.0); BLOOD UREA NITROGEN 15 MG/DL (7-18); CALCIUM LEVEL 8.9 MG/DL (8.5-10.1); CARBON DIOXIDE LEVEL 25 MEQ/L (21-32); CHLORIDE LEVEL 104 MEQ/L (98-107); CREATININE FOR GFR 0.95 MG/DL (0.55-1.30); GLOMERULAR FILTRATION RATE > 60.0 (>51); GLUCOSE, FASTING 114 MG/DL (70-100); LIPASE 111 U/L (73-393); POTASSIUM SERUM 4.2 MEQ/L (3.5-5.1); SODIUM LEVEL 137 MEQ/L (136-145); TOTAL PROTEIN 7.1 GM/DL (6.4-8.2)
== END ==
LOC: M LABDRWAD 12:28
PROVIDERS: ATTEND Physician Assistant
DX: R10.30 Lower abdominal pain, unspecified (principal)

== ENCOUNTER → 2020-11-30 | Outpatient (CLI) | payer OTHER ==
[~2020-11-30] MED LIST changes: +GASTROGRAFIN SOLUTION 30ML (Q9963) As Ordered ONE; +ISOVUE-370 76% 100ML VIAL As Ordered ONE
--- NOTE | 2020-12-01 06:17 | REP ---
INDICATION: LOWER ABD PAIN, UNSPECIFIED. COMPARISON: PET-CT dated 08/26/2015 TECHNIQUE: Axial contrast-enhanced images from the lung bases to the pubic symphysis using oral and 100 cc Isovue 370 intravenous contrast material. Delayed images of the abdomen with coronal and sagittal reformations obtained. This CT examination was performed using the following dose reduction techniques: Automated exposure control, adjustment of mA and/or kv according to the patient's size, and the use of iterative reconstruction technique. FINDINGS: Lung bases are clear. Liver, spleen, pancreas, bilateral adrenal glands and kidneys are normal. Incidental small benign simple left renal cysts measuring 9 mm and 2.2 cm noted. The small bowel is unremarkable and there is no evidence for obstruction. Sigmoid diverticula noted and there is a small short segment of focal inflammatory change involving the proximal sigmoid colon (series 201, images 102-113) consistent with diverticulitis. No ascites. No drainable collection/abscess. No free air.. Pelvis demonstrates normal bladder and age-appropriate uterus/adnexa. No ascites. No free air. No intraperitoneal or retroperitoneal adenopathy. Abdominal aorta and vasculature appear normal. Musculoskeletal structures are intact and without acute osseous abnormality. IMPRESSION: 1. Short segment focal sigmoid diverticulitis. No associated obstruction, perforation, drainable collection/abscess. 2. Otherwise normal CT of the abdomen and pelvis. <Electronically signed by Yogi Witt > 12/01/20 0635
== END ==
LOC: M RAD 15:45
PROVIDERS: ATTEND Physician Assistant
DX: K57.32 Diverticulitis of large intestine without perforation or abscess without bleeding (principal); N28.1 Cyst of kidney, acquired
CPT/HCPCS: 74177; Q9963; Q9967

== ENCOUNTER → 2021-01-28 | Outpatient (CLI) | payer OTHER ==
[~2021-01-28] MED LIST changes: +CITA20TA6 PO; -GASTROGRAFIN SOLUTION 30ML (Q9963) As Ordered ONE; -ISOVUE-370 76% 100ML VIAL As Ordered ONE
== END ==
LOC: M LABSMTC 10:25
PROVIDERS: ATTEND Anesthesiology
DX: Z11.52 Encounter for screening for COVID-19 (principal)

== ENCOUNTER 2021-02-02 10:21 | Day surgery (SDC) | payer OTHER ==
[~2021-02-02] VITALS: Ht 172.7 cm; Wt 122.9 kg
[~2021-02-02 10:21] MED LIST changes: +NS 1,000 ML IV ONE
[2021-02-02] MEDS ORDERED: LIDOCAINE 2% 100MG/5ML SDV (FOR ANES.) As Ordered ONE (13:14)
[2021-02-02] MEDS ORDERED: propofoL 200 MG/20 ML VIAL As Ordered ONE ×2 (13:14→13:55)
--- NOTE | 2021-02-02 14:15 | ROOR ---
Patient Name: Mary Massey Procedure Date: 02/02/2021 1:36 PM Date of : 1970 Age: 50 Room: [facility] Gender: Female Note Status: Finalized Procedure: Colonoscopy Indications: Follow-up of diverticulitis Providers: Souleymane Reed MD Referring MD: Kami LOPEZ DO Requesting Provider: Medicines: Monitored Anesthesia Care Complications: No immediate complications. Procedure: Pre-Anesthesia Assessment: - Prior to the procedure, a History and Physical was performed, and patient medications and allergies were reviewed. The patient is competent. The risks and benefits of the procedure and the sedation options and risks were discussed with the patient. All questions were answered and informed consent was obtained. Patient identification and proposed procedure were verified by the physician, the nurse and the cut off machine unloader in the endoscopy suite. Mental Status Examination: alert and oriented. Airway Examination: normal oropharyngeal airway and neck mobility. Respiratory Examination: clear to auscultation. CV Examination: normal. Prophylactic Antibiotics: The patient does not require prophylactic antibiotics. Prior Anticoagulants: The patient has taken no previous anticoagulant or antiplatelet agents. ASA Grade Assessment: III - A patient with severe systemic disease. After reviewing the risks and benefits, the patient was deemed in satisfactory condition to undergo the procedure. The anesthesia plan was to use monitored anesthesia care (MAC). Immediately prior to administration of medications, the patient was re-assessed for adequacy to receive sedatives. The heart rate, respiratory rate, oxygen saturations, blood pressure, adequacy of pulmonary ventilation, and response to care were monitored throughout the procedure. The physical status of the patient was re-assessed after the procedure. The Colonoscope was introduced through the anus and advanced to the cecum, identified by appendiceal orifice and ileocecal valve. The colonoscopy was performed without difficulty. The patient tolerated the procedure well. The quality of the bowel preparation was fair. Findings: Hemorrhoids were found on perianal exam. A few small-mouthed diverticula were found in the sigmoid colon. The entire examined colon appeared normal. The retroflexed view of the distal rectum and anal verge was normal and showed no anal or rectal abnormalities. Impression: - Preparation of the colon was fair. - Hemorrhoids found on perianal exam. - Diverticulosis in the sigmoid colon. - The entire examined colon is normal. - No specimens collected. Recommendation: - Discharge patient to home (ambulatory). Procedure Code(s): --- Professional --- 74275, Colonoscopy, flexible; diagnostic, including collection of specimen(s) by brushing or washing, when performed (separate procedure) Diagnosis Code(s): --- Professional --- K64.9, Unspecified hemorrhoids K57.32, Diverticulitis of large intestine without perforation or abscess without bleeding K57.30, Diverticulosis of large intestine without perforation or abscess without bleeding CPT copyright 2019 [employer]. All rights reserved. The codes documented in this report are preliminary and upon death surveys coder review may be revised to meet current compliance requirements. Souleymane Reed MD Souleymane Reed MD 02/02/2021 2:15:03 PM Electronically signed by Souleymane Reed MD Number of Addenda: 0 Note Initiated On: 02/02/2021 1:36 PM Estimated Blood Loss: Estimated blood loss: none.
[2021-02-02 14:35] VITALS: BP 124/77
== END 2021-02-02 14:40 | disposition home or self-care (01) ==
LOC: M OPP 10:21
PROVIDERS: ATTEND Surgery
DX: K57.30 Diverticulosis of large intestine without perforation or abscess without bleeding (principal); K64.8 Other hemorrhoids; Z09 Encounter for follow-up examination after completed treatment for conditions other than malignant neoplasm; K59.00 Constipation, unspecified; M79.7 Fibromyalgia; Z79.899 Other long term (current) drug therapy; Z88.5 Allergy status to narcotic agent; Z85.850 Personal history of malignant neoplasm of thyroid; Z92.3 Personal history of irradiation; Z87.891 Personal history of nicotine dependence

== ENCOUNTER → 2021-03-24 | Outpatient (REF) | payer OTHER, BC ==
[~2021-03-24] MED LIST changes: -NS 1,000 ML IV ONE
== END ==
LOC: M LAB REF 17:39
PROVIDERS: ATTEND Physician Assistant
DX: J01.90 Acute sinusitis, unspecified (principal)

== ENCOUNTER → 2021-04-13 | Outpatient (REF) | payer OTHER, BC ==
[2021-04-13 14:39] LABS: FREE T4 1.27 NG/DL (0.76-1.46); THYROID STIMULATING HORMONE 0.338 uIU/ML (0.358-3.740)
== END ==
LOC: M LABDRWAD 12:21
PROVIDERS: ATTEND Internal Medicine Endocrinology, Diabetes & Metabolism
DX: E89.0 Postprocedural hypothyroidism (principal)

== ENCOUNTER → 2021-06-21 | Outpatient (REF) | payer OTHER, BC | LOC: M LAB REF 17:30 | PROVIDERS: ATTEND Physician Assistant | DX: J01.90 Acute sinusitis, unspecified (principal) ==

== ENCOUNTER → 2021-09-15 | Outpatient (CLI) | payer OTHER, BC | LOC: M WHC 14:48 | PROVIDERS: ATTEND Specialist | DX: Z12.31 Encounter for screening mammogram for malignant neoplasm of breast (principal); Z53.8 Procedure and treatment not carried out for other reasons ==

== ENCOUNTER → 2021-09-29 | Outpatient (CLI) | payer BC | LOC: M RAD 08:55 | PROVIDERS: ATTEND Otolaryngology | DX: J32.0 Chronic maxillary sinusitis (principal) ==

== ENCOUNTER → 2021-11-07 | Outpatient (REF) | payer BC ==
[~2021-11-07] MED LIST changes: +CITA10TA6 PO; +FLUTISP; +MEDICAL MARIHUANA; +TIZA10TA PO
== END ==
LOC: M PLALAB 12:06
PROVIDERS: ATTEND Specialist
DX: Z12.4 Encounter for screening for malignant neoplasm of cervix (principal)
CPT/HCPCS: 87624; G0123

== ENCOUNTER → 2021-11-07 | Outpatient (CLI) | payer BC | LOC: M WHC 11:17 | PROVIDERS: ATTEND Specialist | DX: Z12.31 Encounter for screening mammogram for malignant neoplasm of breast (principal) ==

== ENCOUNTER 2021-11-10 06:54 | Day surgery (SDC) | payer BC ==
[~2021-11-10] VITALS: Ht 172.7 cm; Wt 123.4 kg
[~2021-11-10 06:54] MED LIST changes: +LIDOCAINE 1% MDV 20ML VIAL SQ PRN; +LR 1,000 ML IV ONE; +dexameTHASONE 4 MG/ML 1ML VIAL (J1100 PER 1MG) IV ONE
[2021-11-10] MEDS ORDERED: ROCURONIUM BROMIDE 50 MG/5 ML VIAL As Ordered ONE (07:58)
[2021-11-10] MEDS ORDERED: MIDAZOLAM INJ 2MG/2ML VIAL (J2250 PER 1MG) As Ordered ONE (07:58)
[2021-11-10] MEDS ORDERED: LIDOCAINE 2% 100MG/5ML SDV (FOR ANES.) As Ordered ONE (07:58)
[2021-11-10] MEDS ORDERED: propofoL 200 MG/20 ML VIAL As Ordered ONE ×3 (07:58→09:36)
[2021-11-10] MEDS ORDERED: fentaNYL 250 MCG/5 ML INJECTION As Ordered ONE (07:58)
[2021-11-10] MEDS ORDERED: BACITRACIN OINTMENT 30GM TUBE As Ordered ONE (08:37)
[2021-11-10] MEDS ORDERED: OXYMETAZOLINE 0.05% NASAL SPRAY (AFRIN) As Ordered ONE (08:37)
[2021-11-10] MEDS ORDERED: SILVER NITRATE APPLICATOR As Ordered ONE (08:37)
[2021-11-10] MEDS ORDERED: THROMBIN SOLN 5,000 UNITS VIAL As Ordered ONE (08:37)
[2021-11-10] MEDS ORDERED: METHYLENE BLUE 0.5% (5MG/ML) 10 ML AMP (PROVAYBLUE) As Ordered ONE (08:54)
[2021-11-10] MEDS ORDERED: dexameTHASONE 4 MG/ML 1ML VIAL (J1100 PER 1MG) As Ordered ONE (08:58)
[2021-11-10] MEDS ORDERED: EPINEPHrine 1MG/ML INJ 30ML MD-VIAL As Ordered ONE (09:08)
[2021-11-10] MEDS ORDERED: SUGAMMADEX SODIUM 500 MG/5 ML VIAL (BRIDION) As Ordered ONE (09:12)
[2021-11-10] MEDS ORDERED: ONDANSETRON 4MG/2ML VIAL As Ordered ONE (09:14)
[2021-11-10] MEDS ORDERED: METOCLOPRAMIDE INJ 10MG/2ML VIAL (J2765 PER 1) As Ordered ONE (09:14)
[2021-11-10] MEDS ORDERED: ESMOLOL INJ 100MG/10ML VIAL As Ordered ONE (09:18)
[2021-11-10] MEDS ORDERED: hydrALAZINE 20MG/ML 1ML VIAL (J0360 PER 20MG) As Ordered ONE (09:38)
[2021-11-10] MEDS ORDERED: fentaNYL 100 MCG/2 ML INJECTION As Ordered ONE (10:16)
[2021-11-10] MEDS: fentaNYL 100 MCG/2 ML INJECTION IV PRN ×4 (10:19→10:37)
[2021-11-10] MEDS ORDERED: PERCOCET 5MG/325MG TAB PO PRN (10:25)
[2021-11-10] MEDS ORDERED: ONDANSETRON 4MG/2ML VIAL IV PRN (10:25)
[2021-11-10] MEDS ORDERED: LR 1,000 ML IV SCH (10:25)
[2021-11-10 12:07] VITALS: BP 116/65
== END 2021-11-10 12:14 | disposition home or self-care (01) ==
LOC: M SDC 06:54 → MERGE 09:30 → M SDC 12:14
PROVIDERS: ATTEND Otolaryngology
DX: J39.2 Other diseases of pharynx (principal); E03.9 Hypothyroidism, unspecified; E04.1 Nontoxic single thyroid nodule; K57.92 Diverticulitis of intestine, part unspecified, without perforation or abscess without bleeding; M79.7 Fibromyalgia; F41.9 Anxiety disorder, unspecified; F32.9 Major depressive disorder, single episode, unspecified; Z92.3 Personal history of irradiation; E66.9 Obesity, unspecified; Z79.899 Other long term (current) drug therapy; Z87.891 Personal history of nicotine dependence
CPT/HCPCS: 31237; 88305; J0171; J0360; J1100; J2250; J2405; J2765; J3010; Q9968

== ENCOUNTER → 2022-05-08 | Outpatient (CLI) | payer BC ==
[~2022-05-08] MED LIST changes: -LIDOCAINE 1% MDV 20ML VIAL SQ PRN; -LR 1,000 ML IV ONE; -dexameTHASONE 4 MG/ML 1ML VIAL (J1100 PER 1MG) IV ONE
== END ==
LOC: M LABSMTC 11:25
PROVIDERS: ATTEND Anesthesiology
DX: Z01.818 Encounter for other preprocedural examination (principal); Z11.52 Encounter for screening for COVID-19

== ENCOUNTER 2022-05-11 08:31 | Day surgery (SDC) | payer BC ==
[~2022-05-11] VITALS: Ht 172.7 cm; Wt 123.1 kg
[~2022-05-11 08:31] MED LIST changes: +OXYMETAZOLINE 0.05% NASAL SPRAY (AFRIN) As Ordered ONE; +ZYRTTAB8 PO; +medical marijuana
[2022-05-11] MEDS ORDERED: LR 1,000 ML IV SCH ×2 (08:50→11:00)
[2022-05-11] MEDS ORDERED: dexameTHASONE 4 MG/ML 1ML VIAL (J1100 PER 1MG) IV ONE (09:10)
[2022-05-11] MEDS ORDERED: SCOPOLAMINE 1MG TRANSDERMAL PATCH TOP ONE (09:30)
[2022-05-11] MEDS ORDERED: ROCURONIUM BROMIDE 50 MG/5 ML VIAL As Ordered ONE (09:40)
[2022-05-11] MEDS ORDERED: LIDOCAINE 2% 100MG/5ML SDV (FOR ANES.) As Ordered ONE (09:40)
[2022-05-11] MEDS ORDERED: propofoL 200 MG/20 ML VIAL As Ordered ONE (09:40)
[2022-05-11] MEDS ORDERED: fentaNYL 250 MCG/5 ML INJECTION As Ordered ONE (09:41)
[2022-05-11] MEDS ORDERED: MIDAZOLAM INJ 2MG/2ML VIAL (J2250 PER 1MG) As Ordered ONE (09:41)
[2022-05-11] MEDS ORDERED: ACETAMINOPHEN 1000MG 100ML IV BTL (OFIRMEV) (J0131 PER 10MG) As Ordered ONE (10:30)
[2022-05-11] MEDS ORDERED: dexameTHASONE 4 MG/ML 1ML VIAL (J1100 PER 1MG) As Ordered ONE (10:31)
[2022-05-11] MEDS ORDERED: SUGAMMADEX SODIUM 500 MG/5 ML VIAL (BRIDION) As Ordered ONE (10:31)
[2022-05-11] MEDS ORDERED: ONDANSETRON 4MG 2ML VIAL As Ordered ONE (10:31)
[2022-05-11] MEDS ORDERED: METOCLOPRAMIDE INJ 10MG/2ML VIAL (J2765 PER 1) As Ordered ONE (10:32)
[2022-05-11] MEDS ORDERED: fentaNYL 100 MCG/2 ML INJECTION IV PRN (11:00)
[2022-05-11] MEDS ORDERED: ONDANSETRON 4MG 2ML VIAL IV PRN (11:00)
[2022-05-11 11:50] VITALS: BP 121/72
[2022-05-12] MEDS ORDERED: UNRESOLVED CLARIFICATION ENTRY XX SCH (00:01)
== END 2022-05-11 12:16 | disposition home or self-care (01) ==
LOC: M SDC 08:31
PROVIDERS: ATTEND Otolaryngology
DX: J35.2 Hypertrophy of adenoids (principal); K92.9 Disease of digestive system, unspecified; E06.3 Autoimmune thyroiditis; K57.92 Diverticulitis of intestine, part unspecified, without perforation or abscess without bleeding; M79.7 Fibromyalgia; Z85.850 Personal history of malignant neoplasm of thyroid; Z79.899 Other long term (current) drug therapy; Z88.5 Allergy status to narcotic agent
CPT/HCPCS: 42831; 93005; J0131; J1100; J2250; J2405; J2765; J3010

== ENCOUNTER → 2022-10-02 | Outpatient (CLI) | payer BC ==
[~2022-10-02] MED LIST changes: -OXYMETAZOLINE 0.05% NASAL SPRAY (AFRIN) As Ordered ONE
[2022-10-02 18:29] LABS: BASO # 0.1 10^3/uL (0.0-0.2); BASO % 0.5 % (0.0-1.0); EOS # 0.1 10^3/uL (0.0-0.5); EOS % 0.3 % (0.0-3.0); HEMATOCRIT 42.5 % (36.0-47.0); HEMOGLOBIN 13.7 g/dl (12.0-15.5); LYMPH # 1.9 10^3/uL (1.5-5.0); LYMPH % 10.4 % (24.0-44.0); MEAN CORPUSCULAR HEMOGLOBIN 28.5 pg (27.0-33.0); MEAN CORPUSCULAR HGB CONC 32.2 g/dl (32.0-36.5); MEAN CORPUSCULAR VOLUME 88.4 fl (80.0-96.0); MONO # 0.8 10^3/uL (0.0-0.8); MONO % 4.3 % (2.0-8.0); NEUTROPHILS # 15.2 10^3/uL (1.5-8.5); NEUTROPHILS % 83.3 % (36.0-66.0); PLATELET COUNT, AUTOMATED 327 10^3/uL (150-450); RED BLOOD COUNT 4.81 10^6/uL (4.00-5.40); WHITE BLOOD COUNT 18.2 10^3/uL (4.0-10.0)
[2022-10-02 18:57] LABS: ALBUMIN 3.4 G/DL (3.2-5.2); ALKALINE PHOSPHATASE 83 U/L (46-116); ALT/SGPT 17 U/L (7.0-40); AST/SGOT 13 U/L (<34); BILIRUBIN,TOTAL 0.3 MG/DL (0.3-1.2); BLOOD UREA NITROGEN 18 MG/DL (9-23); CALCIUM LEVEL 9.1 MG/DL (8.5-10.1); CARBON DIOXIDE LEVEL 26 MMOL/L (20-31); CHLORIDE LEVEL 103 MMOL/L (98-107); CREATININE FOR GFR 0.84 MG/DL (0.55-1.30); GLOMERULAR FILTRATION RATE > 60.0 (>51); GLUCOSE, FASTING 151 MG/DL (60-100); POTASSIUM SERUM 4.4 MMOL/L (3.5-5.1); SODIUM LEVEL 138 MMOL/L (136-145); TOTAL PROTEIN 6.8 G/DL (5.7-8.2)
== END ==
LOC: M LAB 17:45
PROVIDERS: ATTEND Nurse Practitioner Adult Health
DX: R05.3 Chronic cough (principal)

== ENCOUNTER → 2022-10-02 | Outpatient (CLI) | payer BC ==
[2022-10-02 19:00] LABS: THYROID STIMULATING HORMONE 0.072 uIU/ML (0.55-4.78)
[2022-10-02 19:13] LABS: ALBUMIN 3.5 G/DL (3.2-5.2); BLOOD UREA NITROGEN 18 MG/DL (9-23); CARBON DIOXIDE LEVEL 26 MMOL/L (20-31); CHLORIDE LEVEL 101 MMOL/L (98-107); CREATININE FOR GFR 0.82 MG/DL (0.55-1.30); GLOMERULAR FILTRATION RATE > 60.0 (>51); GLUCOSE, FASTING 150 MG/DL (60-100); PHOSPHORUS LEVEL 3.9 MG/DL (2.5-4.9); POTASSIUM SERUM 4.3 MMOL/L (3.5-5.1); SODIUM LEVEL 137 MMOL/L (136-145)
== END ==
LOC: M LAB 17:40
PROVIDERS: ATTEND Internal Medicine Endocrinology, Diabetes & Metabolism
DX: C73 Malignant neoplasm of thyroid gland (principal); E89.0 Postprocedural hypothyroidism

== ENCOUNTER → 2023-01-05 | Outpatient (CLI) | payer BC ==
[~2023-01-05] MED LIST changes: +FLUT50SP17; -FLUTISP
[2023-01-05 15:19] LABS: FREE T4 1.45 NG/DL (0.89-1.76)
[2023-01-05 15:21] LABS: THYROGLOBULIN ANTIBODY < 15.0 U/ML (<60.0)
[2023-01-13 03:07] LABS: THRYOGLOBULIN ANTIBODIES (ATA) 2.1 IU/mL (0.0-0.9); THYROGLOBULIN RIA 2.5 ng/mL (.)
== END ==
LOC: M LAB 14:15
PROVIDERS: ATTEND Student in an Organized Health Care Education/Training Program
DX: E89.0 Postprocedural hypothyroidism (principal); C73 Malignant neoplasm of thyroid gland

== ENCOUNTER → 2023-01-11 | Outpatient (REF) | payer BC ==
[2023-01-11 17:39] LABS: BASO # 0.1 10^3/uL (0.0-0.2); BASO % 0.7 % (0.0-1.0); EOS # 0.1 10^3/uL (0.0-0.5); EOS % 1.2 % (0.0-3.0); HEMATOCRIT 40.7 % (36.0-47.0); HEMOGLOBIN 13.3 g/dl (12.0-15.5); LYMPH # 1.9 10^3/uL (1.5-5.0); LYMPH % 21.9 % (24.0-44.0); MEAN CORPUSCULAR HEMOGLOBIN 28.6 pg (27.0-33.0); MEAN CORPUSCULAR HGB CONC 32.7 g/dl (32.0-36.5); MEAN CORPUSCULAR VOLUME 87.5 fl (80.0-96.0); MONO # 0.4 10^3/uL (0.0-0.8); NEUTROPHILS # 6.1 10^3/uL (1.5-8.5); NEUTROPHILS % 70.9 % (36.0-66.0); PLATELET COUNT, AUTOMATED 297 10^3/uL (150-450); RED BLOOD COUNT 4.65 10^6/uL (4.00-5.40); WHITE BLOOD COUNT 8.6 10^3/uL (4.0-10.0)
[2023-01-11 18:06] LABS: ALBUMIN 3.7 G/DL (3.2-5.2); ALKALINE PHOSPHATASE 59 U/L (46-116); ALT/SGPT 15 U/L (7.0-40); AST/SGOT 11 U/L (<34); BILIRUBIN,TOTAL 0.5 MG/DL (0.3-1.2); BLOOD UREA NITROGEN 14 MG/DL (9-23); CALCIUM LEVEL 8.9 MG/DL (8.5-10.1); CARBON DIOXIDE LEVEL 27 MMOL/L (20-31); CHLORIDE LEVEL 105 MMOL/L (98-107); CREATININE FOR GFR 0.95 MG/DL (0.55-1.30); GLOMERULAR FILTRATION RATE > 60.0 (>51); GLUCOSE, FASTING 104 MG/DL (60-100); IRON (FE) 72 UG/DL (50-170); PERCENT SATURATION 26.4 % (13.2-45.0); POTASSIUM SERUM 4.1 MMOL/L (3.5-5.1); SODIUM LEVEL 140 MMOL/L (136-145); TOTAL IRON BINDING CAPACITY 273 UG/DL (250-425); TOTAL PROTEIN 6.5 G/DL (5.7-8.2)
[2023-01-11 18:09] LABS: THYROID STIMULATING HORMONE 0.041 uIU/ML (0.55-4.78); TOTAL 25(OH) VITAMIN D 30.5 NG/ML (20.0-100.0)
[2023-01-11 18:10] LABS: FOLATE 5.8 NG/ML (>5.4); FREE T4 1.37 NG/DL (0.89-1.76); VITAMIN B12 LEVEL 307 PG/ML (211-911)
== END ==
LOC: M LABDRWAD 16:00
PROVIDERS: ATTEND Physician Assistant
DX: R53.83 Other fatigue (principal)

== ENCOUNTER → 2023-01-18 | Outpatient (CLI) | payer BC | LOC: M SLEEP HO 09:52 | PROVIDERS: ATTEND Family Medicine | DX: G47.10 Hypersomnia, unspecified (principal); R06.81 Apnea, not elsewhere classified ==

== ENCOUNTER → 2023-02-01 | Outpatient (CLI) | payer BC | LOC: M WHC 15:26 | DX: E89.0 Postprocedural hypothyroidism (principal); C73 Malignant neoplasm of thyroid gland ==

== ENCOUNTER → 2023-04-15 | Outpatient (CLI) | payer BC | LOC: M LAB 13:58 | PROVIDERS: ATTEND Internal Medicine Endocrinology, Diabetes & Metabolism | DX: E06.3 Autoimmune thyroiditis (principal); E89.0 Postprocedural hypothyroidism ==

== ENCOUNTER → 2023-04-15 | Outpatient (CLI) | payer BC ==
[2023-04-15 14:24] LABS: BASO # 0.1 10^3/uL (0.0-0.2); BASO % 0.6 % (0.0-1.0); EOS # 0.1 10^3/uL (0.0-0.5); EOS % 1.3 % (0.0-3.0); HEMATOCRIT 41.4 % (36.0-47.0); HEMOGLOBIN 13.7 g/dl (12.0-15.5); LYMPH % 18.1 % (24.0-44.0); MEAN CORPUSCULAR HEMOGLOBIN 28.3 pg (27.0-33.0); MEAN CORPUSCULAR HGB CONC 33.1 g/dl (32.0-36.5); MEAN CORPUSCULAR VOLUME 85.5 fl (80.0-96.0); MONO # 0.7 10^3/uL (0.0-0.8); MONO % 6.1 % (2.0-8.0); NEUTROPHILS # 7.9 10^3/uL (1.5-8.5); NEUTROPHILS % 73.5 % (36.0-66.0); PLATELET COUNT, AUTOMATED 309 10^3/uL (150-450); RED BLOOD COUNT 4.84 10^6/uL (4.00-5.40); WHITE BLOOD COUNT 10.8 10^3/uL (4.0-10.0)
[2023-04-15 14:51] LABS: ALBUMIN 3.7 G/DL (3.2-5.2); ALKALINE PHOSPHATASE 67 U/L (46-116); ALT/SGPT 23 U/L (7.0-40); AST/SGOT 16 U/L (<34); BILIRUBIN,TOTAL 0.6 MG/DL (0.3-1.2); BLOOD UREA NITROGEN 14 MG/DL (9-23); CALCIUM LEVEL 8.8 MG/DL (8.5-10.1); CARBON DIOXIDE LEVEL 29 MMOL/L (20-31); CHLORIDE LEVEL 106 MMOL/L (98-107); CREATININE FOR GFR 0.98 MG/DL (0.55-1.30); GLOMERULAR FILTRATION RATE > 60.0 (>51); GLUCOSE, FASTING 114 MG/DL (60-100); SODIUM LEVEL 140 MMOL/L (136-145); TOTAL PROTEIN 6.9 G/DL (5.7-8.2)
[2023-04-15 14:54] LABS: FOLATE 11.9 NG/ML (>5.4); THYROID STIMULATING HORMONE 0.106 uIU/ML (0.55-4.78)
[2023-04-15 14:55] LABS: VITAMIN B12 LEVEL 669 PG/ML (211-911)
== END ==
LOC: M LAB 14:01
PROVIDERS: ATTEND Physician Assistant
DX: E03.9 Hypothyroidism, unspecified (principal); E55.9 Vitamin D deficiency, unspecified; Z79.899 Other long term (current) drug therapy

== ENCOUNTER → 2023-08-24 | Outpatient (CLI) | payer BC ==
[~2023-08-24] MED LIST changes: -FLUT50SP17; +FLUTISP
== END ==
LOC: M PLARAD 08:25
PROVIDERS: ATTEND Physician Assistant
DX: M47.22 Other spondylosis with radiculopathy, cervical region (principal); M47.26 Other spondylosis with radiculopathy, lumbar region

== ENCOUNTER → 2023-12-30 | Outpatient (CLI) | payer BC ==
[2023-12-30 14:09] LABS: ALBUMIN 3.7 G/DL (3.2-5.2); BLOOD UREA NITROGEN 12 MG/DL (9-23); CALCIUM LEVEL 9.1 MG/DL (8.5-10.1); CARBON DIOXIDE LEVEL 26 MMOL/L (20-31); CHLORIDE LEVEL 108 MMOL/L (98-107); CREATININE FOR GFR 0.83 MG/DL (0.55-1.30); GLOMERULAR FILTRATION RATE > 60.0 (>51); GLUCOSE, FASTING 103 MG/DL (60-100); PHOSPHORUS LEVEL 3.4 MG/DL (2.5-4.9); POTASSIUM SERUM 4.1 MMOL/L (3.5-5.1); SODIUM LEVEL 140 MMOL/L (136-145)
[2023-12-30 14:10] LABS: THYROID STIMULATING HORMONE 0.348 uIU/ML (0.55-4.78)
== END ==
LOC: M LAB 12:59
PROVIDERS: ATTEND Internal Medicine Endocrinology, Diabetes & Metabolism
DX: E89.0 Postprocedural hypothyroidism (principal); C73 Malignant neoplasm of thyroid gland

== ENCOUNTER → 2024-09-11 | Outpatient (CLI) | payer BC ==
[2024-09-11 13:22] LABS: FREE T4 1.22 NG/DL (0.89-1.76); THYROID STIMULATING HORMONE 0.199 uIU/ML (0.55-4.78)
[2024-09-12 16:28] LABS: THRYOGLOBULIN ANTIBODIES (ATA) 2 IU/mL (< or = 1); THYROGLOBULIN QUANTITATIVE < 0.1 ng/mL (2.8-40.9)
== END ==
LOC: M LAB 11:50
PROVIDERS: ATTEND Student in an Organized Health Care Education/Training Program
DX: E89.0 Postprocedural hypothyroidism (principal)

== ENCOUNTER → 2024-10-31 | Outpatient (CLI) | payer BC | LOC: M RAD 14:31 | PROVIDERS: ATTEND Internal Medicine Endocrinology, Diabetes & Metabolism | DX: C73 Malignant neoplasm of thyroid gland (principal); E89.0 Postprocedural hypothyroidism ==

== ENCOUNTER → 2025-05-22 | Outpatient (CLI) | payer OTHER | LOC: M WHC 12:43 | PROVIDERS: ATTEND Physician Assistant | DX: Z12.31 Encounter for screening mammogram for malignant neoplasm of breast (principal); R92.323 Mammographic fibroglandular density, bilateral breasts ==

== ENCOUNTER → 2025-05-23 | Outpatient (CLI) | payer OTHER ==
[2025-05-23 12:10] LABS: CALCIUM LEVEL 8.8 MG/DL (8.5-10.1); CARBON DIOXIDE LEVEL 28.0 MMOL/L (20-31); CHLORIDE LEVEL 103.0 MMOL/L (98-107); CREATININE FOR GFR 0.82 MG/DL (0.55-1.30); FREE T4 1.28 NG/DL (0.89-1.76); GLOMERULAR FILTRATION RATE 84.4 (>51); PHOSPHORUS LEVEL 3.7 MG/DL (2.5-4.9); POTASSIUM SERUM 4.0 MMOL/L (3.5-5.1); SODIUM LEVEL 139.0 MMOL/L (136-145)
[2025-05-26 16:41] LABS: THRYOGLOBULIN ANTIBODIES (ATA) 1 IU/mL (< or = 1); THYROGLOBULIN QUANTITATIVE < 0.1 ng/mL (2.8-40.9)
== END ==
LOC: M LAB 10:34
PROVIDERS: ATTEND Internal Medicine Endocrinology, Diabetes & Metabolism
DX: E89.0 Postprocedural hypothyroidism (principal); C73 Malignant neoplasm of thyroid gland